=== PATIENT | female | born 1955 | race Caucasian/White ===

== ENCOUNTER 2021-07-29 07:50 | Inpatient (IN) ==
[2021-07-22 19:49] LABS: Basophils # (Auto) 0.05 K/mcL (0.00-0.30); Basophils % (Auto) 0.6 % (0.0-2.0); Eosinophils # (Auto) 0.29 K/mcL (0.00-0.70); Eosinophils % (Auto) 3.5 % (0.0-7.0); Hematocrit 42.1 % (34.1-44.9); Hemoglobin 13.7 g/dL (11.2-15.7); Lymphocytes # (Auto) 3.63 K/mcL (1.50-4.80); Lymphocytes % (Auto) 43.8 % (15.5-49.0); Mean Corpuscular HGB Conc 32.5 g/dL (31.0-36.0); Monocytes # (Auto) 0.45 K/mcL (0.10-0.90); Monocytes % (Auto) 5.4 % (1.0-12.0); Neutrophils % (Auto) 46.7 % (38.0-78.0); Platelet Count 280 K/mcL (140-440); RBC 4.73 M/mcL (3.59-5.38); Red Cell Distribution Width 13.9 % (11.5-14.5); WBC 8.3 K/mcL (4.5-11.0)
[2021-07-22 20:09] LABS: Estimated Average Glucose(eAG) 126 mg/dL
[2021-07-22 20:31] LABS: Blood Urea Nitrogen 14 mg/dL (8-23); Calcium 9.7 mg/dL (8.6-10.4); Carbon Dioxide 27 mmol/L (22-30); Chloride 102 mmol/L (96-108); Glomerular Filtration Rate 42; Glucose 131 mg/dL (70-105)
--- NOTE | 2021-07-26 06:14 | EKG ---
[facility] Test Date: 2021-07-22 Pat Name: Dasia Savage Department: REGINE Room: Gender: Female Strapper: : 1955 Requested By: Connor De La Cruz Order Number: [id number] Reading MD: Christopher Alvarado Measurements Intervals [place] Rate: 61 P: 1 NC: 164 QRS: 40 QRSD: 108 T: 7 QT: 432 QTc: 435 Interpretive Statements Sinus rhythm Nonspecific T abnormalities, anterior leads Electronically Signed On 07-26-2021 6:14:09 PDT by Christopher Alvarado /[id number]
[~2021-07-29 07:50] MED LIST: ceFAZolin 2 GM in DEXTROSE 5% IN WATER 50 ML IV SCH
[2021-07-29] MEDS ORDERED: IOPAMIDOL 100 ML BOTTLE IV ONE (07:51)
[2021-07-29] MEDS ORDERED: fentaNYL 100 MCG/2 ML VIAL IV ONE ×2 (09:07→12:56)
[2021-07-29] MEDS ORDERED: LIDOCAINE HCL/PF 100 MG/5 ML SYRINGE IV ONE (09:07)
[2021-07-29] MEDS ORDERED: SUGAMMADEX SODIUM 200 MG/2 ML VIAL IV ONE (09:07)
[2021-07-29] MEDS ORDERED: PROPOFOL 200 MG/20 ML VIAL IV ONE (09:07)
[2021-07-29] MEDS ORDERED: KETAMINE 50 MG/ML Syringe (ANEST) IV ONE (09:07)
[2021-07-29] MEDS ORDERED: ONDANSETRON 4 MG/2 ML VIAL ONE (09:07)
[2021-07-29] MEDS ORDERED: ePHEDrine 50 MG/5 ML SYRINGE (ANEST) IV ONE (09:07)
[2021-07-29] MEDS ORDERED: DEXAMETHASONE 10 MG/ML VIAL ONE (09:07)
[2021-07-29] MEDS ORDERED: MAGNESIUM SULFATE 2 GM/50 ML BAG IV ONE (09:07)
[2021-07-29] MEDS ORDERED: GLYCOPYRROLATE 0.2 MG/ML VIAL IV ONE (09:07)
[2021-07-29] MEDS ORDERED: ROCURONIUM 10 MG/ML ML IV ONE (09:07)
[2021-07-29] MEDS ORDERED: BUPIVACAINE W/EPI 0.5% 50 ML VIAL IJ ONE (09:33)
[2021-07-29] MEDS: 0.9 % SODIUM CHLORIDE 10 ML SYRINGE IV SCH ×2 (10:00→14:30)
[2021-07-29] MEDS ORDERED: ONDANSETRON 4 MG/2 ML VIAL IV PRN ×2 (10:31→10:59)
[2021-07-29] MEDS ORDERED: HYDROmorphone 0.5 MG/0.5 ML SYRINGE IV PRN (10:31)
[2021-07-29] MEDS ORDERED: PROMETHAZINE 25 MG/ML VIAL IV PRN (10:31)
[2021-07-29] MEDS ORDERED: fentaNYL 100 MCG/2 ML VIAL IV PRN (10:31)
[2021-07-29] MEDS ORDERED: LACTATED RINGERS 250 ML IV PRN (10:31)
[2021-07-29] MEDS ORDERED: MEPERIDINE 25 MG/ML VIAL IV PRN (10:31)
[2021-07-29] MEDS ORDERED: NALOXONE HCL 0.4 MG/ML VIAL IV PRN (10:31)
[2021-07-29] MEDS ORDERED: IPRATROPIUM/ALBUTEROL 3 ML AMPUL.NEB NEB PRN (10:31)
[2021-07-29] MEDS ORDERED: ACETAMINOPHEN 1,000 MG/100 ML BAG IV ONE (10:31)
[2021-07-29] MEDS ORDERED: diphenhydrAMINE 50 MG/ML VIAL IV PRN (10:31)
[2021-07-29] MEDS ORDERED: LACTATED RINGERS 1,000 ML IV SCH (10:45)
--- NOTE | 2021-07-29 10:57 | Brief Operative Note ---
Brief Operative Note Date of procedure: 07/29/21 Pre-op diagnosis: Biliary Colic Post-op diagnosis: same Procedure: Laparoscopic Cholecystectomy Grafts/Implants: No Anesthesia: GETA Findings: moderately edematous gallbladder with substantial inflammation at the level of the cystic duct and hepatocystic triangle - polypoid mass identified in the gallbladder fundus but no stones noted. 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
--- NOTE | 2021-07-29 13:03 | General Surgery Progress Note ---
Surgical - Auxillary Note - Subjective Patient Information: Note initiated : 07/29/21 at 12:35 pm Service Date, if different from initiated Date: [] Patient: Dasia Savage 65 y/o F admitted on for Laparoscopic Cholecystectomy . Chief Complaint: [Following elective laparoscopic cholecystectomy and uneventful operative course the patient was delivered to the PACU in stable condition. After approximately 30 minutes in PACU the anesthesia provider was notified that the patient was having difficulty maintaining SP02 level above 90%. At this time I evaluated the patient in the PACU and found the patient unresponsive with little to no respiratory effort. The patient was supported with supplemental 02 via BVM with SP02 99% while the hopspitalist and attending surgeon were notified. The patient was re-intubated in PACU via glidescope without difficulty and the patient was supported with bag ventilation in preparation for CT to rule out stroke. While waiting for notification that radiology was ready to receive the patient a twitch monitor was used to test the patients motor response. Despite having been given a full intraoperative reversal it was noted that the patient had a less than full response to nerve stimulation. It was decided to give a second dose of Sugammadex 200mg to ensure adequate reversal of muscle relaxation. The patient then began to respond by reaching for the ETT and spontaneously ventilating. Once an adequate respiratory effort was established the patient was then re-extubated in the PACU. The patient was responding appropriately, following commands and maintaining stable vital signs in PACU. She was then accompanied to CT by PACU and anesthesia staff prior to being discharged from PACU in the ICU where she will continue to be monitored.]
--- NOTE | 2021-07-29 13:23 | Cat Scan Report ---
History: Unresponsive TECHNIQUE: The brain was first imaged without contrast in axial plane. Intravenous nonionic contrast was administered. Arterial phase images were acquired from the aortic arch to the top of the head. Sagittal, coronal and curved linear reformatted images of the neck were obtained. FINDINGS: There are symmetric prominent CSF filled perivascular lacunar spaces along the inferior border of the globus pallidus bilaterally. There is no evidence of an infarct, hemorrhage or cerebral edema. The postcontrast view show no enhancing lesion within the brain. There is mild generalized atrophy, most apparent in the frontal and temporal lobes. No abnormal extra-axial fluid collection is present. Angiogram: The aortic arch is normal in caliber. There is minimal plaque formation along the wall of the aorta. The great vessels arising from the aorta are normal in caliber and symmetric. There is a small amount of eccentric calcified plaque along the posterior wall of the left carotid bifurcation and a trace amount of plaque along the posterior wall of the right carotid bifurcation. These are not causing stenosis. There is no dissection or thrombosis. The internal/external carotids are otherwise normal. The vertebral arteries are normal and nearly symmetric. At the foramen magnum the left vertebral is dominant. There are multiple eccentric calcified plaques in the cavernous portions of both internal carotids. These are not causing hemodynamically significant stenosis. The intracranial arteries are otherwise normal. There is no aneurysm, thrombosis or dissection. No vascular malformation is present. There is no enhancing lesion within the brain. IMPRESSION: Mild atherosclerotic disease in the carotid bifurcations bilaterally. These are not causing stenosis and there is no dissection. Normal intracranial arterial circulation Prominent CSF filled perivascular lacunar spaces in the basal ganglia bilaterally. Mild atrophy Interpreted and Authenticated by: oWod Joy 07/29/21
--- NOTE | 2021-07-29 13:30 | Internal Medicine Consult Note ---
HPI Data of Consult Consult date: 07/29/21 Requesting physician: Ron Xiong Primary Care Provider: Angelika Woods Consult Narrative Chief complaint: LOS Reason for consult: Temporarily re-intubated post-op History of present illness: 65-year-old female with a past medical history significant for biliary dyskinesia who now presents to the hospital for an elective laparoscopic cholecystectomy per general surgery. Unfortunately, in the postop period, she had to be reintubated for apnea and acute metabolic encephalopathy. The patient per discussion with anesthesia, most likely still paralyzed and was reversed immediately. With the reversal agent for rocuronium, she was able to wake back up and was responsive quite quickly and extubated once again. She was transferred to the ICU for close monitoring and evaluation. The hospital service was asked to consult. cc:: CC: Randell Xiong MD Review of Systems All systems: reviewed and no additional remarkable complaints except as stated Constitutional Constitutional: Present as per HPI EENT Eyes: Present as per HPI; Absent blurry vision Cardiovascular Cardiovascular: Present as per HPI; Absent chest pain, dyspnea, dyspnea on exertion, leg edema or palpatations Respiratory Respiratory: Present as per HPI; Absent cough, dyspnea, dyspnea on exertion, wheezing or stridor Gastrointestinal Gastrointestinal: Present as per HPI, abdominal pain and nausea; Absent diarrhea, dysphagia, hematemesis, melena or vomiting Musculoskeletal Musculoskeletal: Present as per HPI; Absent joint swelling, limited range of motion, muscle cramps, muscle weakness or myalgias Integumentary Integumentary: Present as per HPI; Absent erythema, new lesions, rash or wounds Neurological Neurological: Present as per HPI; Absent abnormal gait, behavioral changes, focal weakness, headache(s), loss of vision, numbness, sensory deficit or syncope Endocrine Endocrine: Absent change in body appearance, fatigue or heat intolerance Hematologic/Lymphatic Hematologic/Lymphatic: Present as per HPI PFSH PFSH All Active Problems (Updated 06/16/21 @ 21:15 by Randell Xiong MD) Acute pain of left shoulder (Chronic) Epigastric abdominal pain (Chronic) Biliary dyskinesia (Chronic) Vomiting (Chronic) Abdominal pain (Chronic) Hypothyroidism (Chronic) Gout (Chronic) Bilateral hearing loss (Chronic) Subsequent non-ST elevation (NSTEMI) myocardial infarction (Chronic) Edema (Chronic) Coronary arteriosclerosis (Chronic) Essential hypertension (Chronic) Obesity (Chronic) Mixed hyperlipidemia (Chronic) Cholecystitis (Chronic) Finger laceration (Chronic) Medical History Abdominal pain Acute pain of left shoulder Bilateral hearing loss Biliary dyskinesia Cholecystitis Coronary arteriosclerosis Edema Epigastric abdominal pain Essential hypertension Gout Hypothyroidism Mixed hyperlipidemia Obesity Subsequent non-ST elevation (NSTEMI) myocardial infarction Vomiting Surgical History History of coronary artery bypass graft x 3 (~01/2010) History of hysterectomy History of kidney surgery Tumor removed, malignant Family History Other No pertinent family history Social History marital status: occupational status: retired smoking status: Never smoker alcohol intake frequency: does not drink substance use type: does not use MEDS/ALLERGIES Home Medications and Allergies Home Medications Medication Instructions Recorded Confirmed Type aspirin 81 mg tablet,delayed 81 mg PO QDAY 09/03/20 07/29/21 History release diphenhydramine HCl 25 mg capsule 50 mg PO BID cap 09/03/20 07/29/21 History (Allergy (diphenhydramine)) levothyroxine 50 mcg tablet 50 mcg PO QDAY tab 09/03/20 07/29/21 History famotidine 20 mg tablet 20 mg PO BID 06/12/21 07/29/21 History furosemide 20 mg tablet 20 mg PO QDAY tab 06/12/21 07/29/21 History magnesium oxide-magnesium amino 1 cap PO QDAY cap 06/12/21 07/29/21 History acid chelate 300 mg capsule (Magnesium (oxide/AA chelate)) metoprolol tartrate 50 mg tablet 50 mg PO BID tab 06/12/21 07/29/21 History pantoprazole 40 mg tablet,delayed 40 mg PO QDAY 06/12/21 07/29/21 History release rosuvastatin 40 mg tablet 40 mg PO QDAY tab 06/12/21 07/29/21 History tumeric 100 mg-khai 150 mg-olive 1 cap PO QDAY 06/12/21 07/29/21 History 50 mg-oreg 150 mg-caprylate capsule hyoscyamine sulfate 0.125 mg 0.125 mg SUBLINGUAL Q4H 06/14/21 07/29/21 History sublingual tablet s-adenosylmethionine [Osman-E] 1 tab PO QDAY 06/14/21 07/29/21 History acetaminophen 500 mg tablet 500 mg PO Q8H #12 tab 07/29/21 Rx (Tylenol Extra Strength) docusate sodium 100 mg capsule 100 mg PO QDAY #10 cap 07/29/21 Rx (Dulcolax Stool Softener (docusate)) ondansetron 4 mg disintegrating 4 mg PO Q8H PRN #10 tab 07/29/21 Rx tablet oxycodone 5 mg tablet 5 mg PO Q4H PRN #14 tab 07/29/21 Rx Allergies Allergy/AdvReac Type Severity Reaction Status Date / Time Zolpidem [From Ambien] Allergy Unknown Abdominal Verified 07/29/21 07:58 Pain-Sleep walk EXAM Constitutional Vitals: Temp Pulse Resp BP Pulse Ox 97 F 75 11 L 109/64 100 07/29/21 12:40 07/29/21 12:40 07/29/21 12:40 07/29/21 12:40 07/29/21 12:40 General appearance: average body habitus Head Head exam: Present atraumatic, normal inspection and normocephalic Eye Eye exam: Present EOMI, normal appearance and PERRL; Absent conjunctival injection ENT ENT exam: Present normal exam; Absent mucous membranes dry Neck Neck exam: Present full ROM; Absent lymphadenopathy Respiratory Respiratory exam: Present normal respiratory exam and CTAB; Absent decreased breath sounds, respiratory distress or wheezes Cardiovascular Cardiovascular exam: Present normal rate and rhythm and RRR; Absent JVD GI/Abdominal GI/Abdominal exam: Present normal bowel sounds, soft, distended, guarding and tenderness; Absent diminished bowel sounds, mass or rebound Neurological Exam Neurological exam: Present alert, CN II-XII intact and oriented X3 Psychiatric Psychiatric exam: Present normal affect and normal mood Skin Skin exam: Present intact and warm; Absent erythema, pallor, petechiae or rash A/P Assessment and plan (1) Biliary dyskinesia: Assessment and plan: The patient had two episodes of biliary colic this year. She underwent HIDA recently Plan: Sucessful lap isela. Post-op mx per genSx Status: Chronic Comment: Abnormal HIDA Scan Possible Biliary Colic Issues are discussed and reviewed at length including Risks, Benefits, Potential Complications and Alternative Treatment Options regarding Lap Cholecystectomy were all reviewed at length and we specifically discussed the possibility that the gallbladder is NOT the source of these symptoms and discussed other potential etiologies. She very much wishes to have her Gallbladder removed and that seems reasonable given the abnormal HIDA and the nature of her complaints We will proceed with this for her in the coming weeks and the importance of a preoperative Cardiac Clearance prior to surgery was discussed at length as well. My contact info is provided and we will plan on scheduling this for her in the coming weeks (2) Coronary arteriosclerosis: Assessment and plan: The patient had [facility] 10 years ago per . Pre-op cardiac risk assessment: medically optimized for surgery with neg MPI SPECT Plan: Holding home ASA, continue statin and BB Status: Chronic (3) Cholecystitis: Assessment and plan: Mx as above Status: Chronic (4) Hypothyroidism: Assessment and plan: Stable Plan: Continue home synthroid Status: Chronic Time Spent With Patient Time: Total time spent is greater than 50% in coordination of care (as documented) at patient's floor/unit and/or counseling patient: Total time spent with greater than 50% in coordination of care (as documented) at patient's floor/unit and/or counseling patient:: 50 - 70 minutes Total Critical Care Time: 30
[2021-07-29] MEDS ORDERED: SENNOSIDES 1 TABLET PO PRN (13:35)
[2021-07-29] MEDS ORDERED: ACETAMINOPHEN 325 MG TABLET PO PRN (13:35)
[2021-07-29] MEDS: oxyCODONE HCL 5 MG TABLET PO PRN ×3 (14:29→23:08)
[2021-07-29] MEDS: morphine 4 MG/ML VIAL IV PRN ×2 (20:02→23:08)
[2021-07-29] MEDS: METOPROLOL TARTRATE 50 MG TABLET PO SCH (20:02)
[2021-07-30] MEDS: oxyCODONE HCL 5 MG TABLET PO PRN ×3 (03:56→12:32)
[2021-07-30] MEDS: morphine 4 MG/ML VIAL IV PRN (03:57)
[2021-07-30 06:27] LABS: Hematocrit 36.1 % (34.1-44.9); Hemoglobin 11.6 g/dL (11.2-15.7); Mean Corpuscular HGB Conc 32.1 g/dL (31.0-36.0); Mean Platelet Volume 9.6 fL (7.4-10.4); Platelet Count 247 K/mcL (140-440); WBC 11.7 K/mcL (4.5-11.0)
[2021-07-30 06:36] LABS: ALT/SGPT 68 U/L (<40); AST/SGOT 64 U/L (<32); Albumin 3.8 gm/dL (3.2-5.2); Albumin/Globulin Ratio 1.5 (1.0-2.3); Alkaline Phosphatase 75 U/L (39-117); Bilirubin,Total 0.7 mg/dL (0.1-1.0); Blood Urea Nitrogen 13 mg/dL (8-23); Calcium 9.2 mg/dL (8.6-10.4); Carbon Dioxide 24 mmol/L (22-30); Chloride 100 mmol/L (96-108); Globulin 2.6 gm/dL (2.2-3.7); Glomerular Filtration Rate 46; Glucose 131 mg/dL (70-105)
[2021-07-30 08:07] LABS: Lymphocytes % 12 % (15-49); Monocytes % (Manual) 3 % (1-12); Platelet Estimate NORMAL (Normal); RBC Morphology NORMAL (Normal); Reactive Lymphocytes 1 % (0-2); Segmented Neutrophils % 84 % (38-78)
[2021-07-30] MEDS ORDERED: SIMVASTATIN 40 MG TABLET PO SCH (09:00)
[2021-07-30] MEDS ORDERED: LEVOTHYROXINE 50 MCG TABLET PO SCH (09:00)
[2021-07-30] MEDS: 0.9 % SODIUM CHLORIDE 10 ML SYRINGE IV SCH (09:00)
[2021-07-30] MEDS ORDERED: ENOXAPARIN 40 MG/0.4 ML SYRINGE SQ SCH (09:00)
[2021-07-30] MEDS: METOPROLOL TARTRATE 50 MG TABLET PO SCH (09:01)
--- NOTE | 2021-07-30 10:13 | Discharge Summary ---
Discharge Provider Provider Patient information: Note initiated : 07/30/21 at 10:13 am Service Date, if different from initiated Date: [] Patient: Dasia Savage 65 y/o F admitted on 07/29/21 for Laparoscopic Cholecystectomy . Chief Complaint: [] Date of admission: 07/29/21 12:45 Discharge date: 07/30/21 Primary care physician: Angelika Woods Consults: 07/29/21 12:49 Consult to Physician [CONS] Routine Comment: Consulting Provider: Micaela Degroot Reason For Exam: Physician to Consult Discharging clinician: Micaela Degroot Discharge Meds Discharge Medications Home Medications aspirin 81 mg tablet,delayed release 81 mg PO QDAY 09/03/20 [History Confirmed 07/29/21 Last Taken 07/22/21] diphenhydramine HCl 25 mg capsule (Allergy (diphenhydramine)) 50 mg PO BID cap 09/03/20 [History Confirmed 07/29/21 Last Taken 07/29/21 06:50] levothyroxine 50 mcg tablet 50 mcg PO QDAY tab 09/03/20 [History Confirmed 07/29/21 Last Taken 07/29/21 06:50] famotidine 20 mg tablet 20 mg PO BID 06/12/21 [History Confirmed 07/29/21 Last Taken 07/29/21 06:50] furosemide 20 mg tablet 20 mg PO QDAY tab 06/12/21 [History Confirmed 07/29/21 Last Taken Unknown] magnesium oxide-magnesium amino acid chelate 300 mg capsule (Magnesium (oxide/AA chelate)) 1 cap PO QDAY cap 06/12/21 [History Confirmed 07/29/21 Last Taken Unknown] metoprolol tartrate 50 mg tablet 50 mg PO BID tab 06/12/21 [History Confirmed 07/29/21 Last Taken 07/29/21 06:50] pantoprazole 40 mg tablet,delayed release 40 mg PO QDAY 06/12/21 [History Confirmed 07/29/21 Last Taken 07/29/21 06:50] rosuvastatin 40 mg tablet 40 mg PO QDAY tab 06/12/21 [History Confirmed 07/29/21 Last Taken Unknown] tumeric 100 mg-khai 150 mg-olive 50 mg-oreg 150 mg-caprylate capsule 1 cap PO QDAY 06/12/21 [History Confirmed 07/29/21 Last Taken Unknown] hyoscyamine sulfate 0.125 mg sublingual tablet 0.125 mg SUBLINGUAL Q4H 06/14/21 [History Confirmed 07/29/21 Last Taken Unknown] s-adenosylmethionine [Osman-E] 1 tab PO QDAY 06/14/21 [History Confirmed 07/29/21 Last Taken Unknown] acetaminophen 500 mg tablet (Tylenol Extra Strength) 500 mg PO Q8H #12 tab 07/29/21 [Rx Last Taken Unknown] docusate sodium 100 mg capsule (Dulcolax Stool Softener (docusate)) 100 mg PO QDAY #10 cap 07/29/21 [Rx Last Taken Unknown] ondansetron 4 mg disintegrating tablet 4 mg PO Q8H PRN #10 tab 07/29/21 [Rx Last Taken Unknown] oxycodone 5 mg tablet 5 mg PO Q4H PRN #14 tab 07/29/21 [Rx Last Taken Unknown] COURSE Hospital Course Hospital course: 65-year-old female with a past medical history significant for biliary dyskinesia who now presents to the hospital for an elective laparoscopic cholecystectomy per general surgery. Unfortunately, in the postop period, she had to be reintubated for apnea and acute metabolic encephalopathy. The patient per discussion with anesthesia, most likely still paralyzed and was reversed immediately. With the reversal agent for rocuronium, she was able to wake back up and was responsive quite quickly and extubated once again. She was transferred to the ICU for close monitoring and evaluation. The hospital service was asked to consult. 07/30: The patient did well overnight. She is eager to return home today. Discussed the case with general surgery attending operations inspector, who is agreeable with the plan. The patient will be discharged home, advance diet as tolerated. Narcotic analgesics were prescribed per general surgery. She will follow-up in outpatient setting in clinic for her postoperative visit. Discharge diagnosis: Laparoscopic cholecystectomy Time Spent with Patient Time attestation: Total time spent providing and/or coordinating discharge services: Time spent: Greater than 30 minutes EXAM Constitutional Vitals: Temp Pulse Resp BP Pulse Ox 97.9 F 53 L 18 112/63 91 07/30/21 08:01 07/30/21 10:03 07/30/21 08:00 07/30/21 10:02 07/30/21 10:03 General appearance: average body habitus Head Head exam: Present atraumatic, normal inspection and normocephalic Eye Eye exam: Present EOMI, normal appearance and PERRL; Absent conjunctival injection ENT ENT exam: Present normal exam; Absent mucous membranes dry Neck Neck exam: Present full ROM; Absent lymphadenopathy Respiratory Respiratory exam: Present normal respiratory exam and CTAB; Absent decreased breath sounds, respiratory distress or wheezes Cardiovascular Cardiovascular exam: Present normal rate and rhythm and RRR; Absent JVD GI/Abdominal GI/Abdominal exam: Present normal bowel sounds and soft; Absent diminished bowel sounds, distended, guarding, mass, rebound or tenderness Neurological Exam Neurological exam: Present alert, CN II-XII intact and oriented X3 Psychiatric Psychiatric exam: Present normal affect and normal mood Skin Skin exam: Present intact and warm; Absent erythema, pallor, petechiae or rash Discharge Data Data Completed and Pending Labs on day of discharge: Labs from last 24 hours 07/30/21 07/30/21 05:00 05:00 WBC 11.7 H RBC 4.10 Hgb 11.6 Hct 36.1 MCV 88.0 MCH 28.3 MCHC 32.1 RDW 14.0 Plt Count 247 MPV 9.6 Seg Neutrophils % 84 H Lymphocytes % 12 L Monocytes % (Manual) 3 Reactive Lymphocytes 1 Platelet Estimate Normal RBC Morphology Normal Sodium 134 Potassium 4.2 Chloride 100 Carbon Dioxide 24 Anion Gap 10.0 BUN 13 Creatinine 1.2 H GFR Calculation 46 Glucose 131 H Calcium 9.2 Total Bilirubin 0.7 AST 64 H ALT 68 H Alkaline Phosphatase 75 Total Protein 6.4 Albumin 3.8 Globulin 2.6 Albumin/Globulin Ratio 1.5 Discharge Plan Patient/Caregiver Discharge Instructions Activity: increase activity as tolerated Diet: Regular Diet Instructions: Low Fat Diet (DC), Surgical Site Infections (DC), Laparoscopic Cholecystectomy (DC) Activity Restrictions/Additional Instructions: See attached instruction sheet Keep dressings clean and dry Ice packs to incisions RTC as tolerated next 3-4 days No lifting over 10-20 lbs until seen in clinic May remove outer dressings after 5 days but leave inner dressings in place Call Dr Xiong if any questions or concerns at [phone] Prescriptions: New oxycodone 5 mg tablet 5 mg PO Q4H PRN (Reason: pain) Qty: 14 0RF acetaminophen [Tylenol Extra Strength] 500 mg tablet 500 mg PO Q8H Qty: 12 0RF docusate sodium [Dulcolax Stool Softener (dss)] 100 mg capsule 100 mg PO QDAY Qty: 10 0RF ondansetron 4 mg tablet,disintegrating 4 mg PO Q8H PRN (Reason: nausea and vomiting) Qty: 10 0RF No Action famotidine 20 mg tablet 20 mg PO BID 0RF Magnesium (oxide/AA chelate) 300 mg capsule 1 cap PO QDAY 0RF pantoprazole 40 mg tablet,delayed release (DR/EC) 40 mg PO QDAY 0RF ejgyrtv-tlda-efcwr-oreg-capryl 100 mg-150 mg- 50 mg-150 mg capsule 1 cap PO QDAY 0RF hyoscyamine sulfate 0.125 mg tablet, sublingual 0.125 mg sublingual Q4H 0RF s-adenosylmethionine [Osman-E] 1 tab PO QDAY 0RF levothyroxine 50 mcg tablet 50 mcg PO QDAY 0RF aspirin 81 mg tablet,delayed release (DR/EC) 81 mg PO QDAY 0RF diphenhydramine HCl [Allergy (diphenhydramine)] 25 mg capsule 50 mg PO BID 0RF furosemide 20 mg tablet 20 mg PO QDAY 0RF metoprolol tartrate 50 mg tablet 50 mg PO BID 0RF rosuvastatin 40 mg tablet 40 mg PO QDAY 0RF Follow Up Plan Follow up with: Randell Xiong MD [Physician] - 08/13/21 1:00 pm Patient Disposition: Home, Self-Care Discharge Orders: Discharge Order (Routine); Ordered 07/30/21 Ordered By: Micaela Degroot
--- NOTE | 2021-07-30 10:58 | EKG ---
[facility] Test Date: 2021-07-29 Pat Name: Dasia Savage Department: ICU Room: 120A Gender: Female Toe Sewer: : 1955 Requested By: Micaela Degroot Order Number: [id number] Reading MD: Christopher Alvarado Measurements Intervals [place] Rate: 78 P: 49 ME: 197 QRS: 27 QRSD: 108 T: 18 QT: 432 QTc: 493 Interpretive Statements Sinus rhythm Nonspecific T abnormalities, anterior leads Possible reciprocal changes with inferior ST elevation; Nonspecific Lateral ST changes Inferior Q waves Inferior ST elevation Electronically Signed On 07-30-2021 10:58:27 PDT by Christopher Alvarado /[id number]
--- NOTE | 2021-07-30 16:31 | Operative Note ---
DATE OF OPERATION: 07/29/2021 PREOPERATIVE DIAGNOSIS: Biliary colic. POSTOPERATIVE DIAGNOSIS: Biliary colic. OPERATIVE PROCEDURE: Laparoscopic cholecystectomy. SURGEON: Randell Xiong M.D. ANESTHESIA: General. PREOPERATIVE MEDICATIONS: Ancef 2 grams IV. INDICATIONS FOR PROCEDURE: The patient is a 65-year-old female who presented to the clinic some time ago with intermittent bouts of right upper quadrant pain and discomfort consistent with possible biliary colic. She had undergone cross-sectional imaging and ultrasound and then also a HIDA scan. The HIDA scan had suggested potential biliary dyskinesia or gallbladder dysmotility. We agreed to proceed with gallbladder removal for her. Risks, benefits, potential complications, and alternative treatment options were all discussed at length. These included, but are not limited to bleeding, infection, cosmetic dissatisfaction, abnormal scarring, potential need for conversion to open procedure, subtotal removal, drain placement, and other potential concerns and issues that might arise. She gave full informed consent and wished to proceed. PROCEDURE IN DETAIL: The patient was taken to the OR, placed supine on the OR table, and placed under general anesthesia and intubated. Bilateral SCDs were applied. All pressure sensitive areas were carefully padded. Both arms were placed out on arm boards under the direction of the OR team after she was positioned carefully on the table. The abdomen was then widely prepped and draped in a sterile fashion. Procedure began with access of the peritoneal cavity utilizing a 0-degree, 5 mm scope through a Visiport in the right upper abdomen. Once we had obtained peritoneal access, pneumoperitoneum was obtained with high-flow CO2 insufflation, and then we utilized a 0-degree scope to check the area of access to make sure there was no evidence of injury; none was seen. We then changed out our 0-degree scope for a 30-degree scope and placed our remaining trocars. This included a 5 mm supraumbilical trocar, an additional 5 mm right upper abdominal trocar, and a 12 mm subxiphoid mid epigastric trocar. We then identified the gallbladder and grasped the fundus and retracted this towards the right shoulder. Of note, there appeared to be a small mass in the gallbladder fundus itself, well away from the liver and not involving the liver bed at all. The fundus was grasped just below this and retracted towards the right shoulder. She had a stiff liver with some evidence of fatty infiltration that made mobility somewhat difficult, but ultimately we were able to identify the gallbladder tapering down into the area of the hepatocystic triangle. The gallbladder was very tubular. The infundibulum was not externally evident. We chose an area on the right lateral aspect of the gallbladder itself, away from the portal structures, which could easily be seen and then opened up the serosa over the gallbladder here and then began our dissection, and then gradually working laterally here and then bringing the dissection across anteriorly. We were able to identify the neck of the gallbladder tapering down into a fairly short cystic duct and then performed a very extensive hepatocystic triangle dissection, delineating the cystic duct coursing from the gallbladder down into the bile duct itself. We then performed a very extensive cystic plate dissection and obtained a very broad critical view of safety. Cystic artery was taken down along its branches high up on the gallbladder and dissected down and away. We created a very large window here to assure there were no interposed structures; none were seen. Once we had obtained this very clear critical view of safety, the gallbladder was transected at the junction point of the neck and a relatively short cystic duct, utilizing the 35 mm endovascular JAI stapler. The gallbladder was then grasped at its neck and retracted towards the right shoulder as well and then the remainder was dissected out very quickly as most of this dissection was already done. The gallbladder was removed in its entirety, placed in an EndoCatch, and taken out through the subxiphoid 12 mm trocar site without difficulty. 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 Photodocumentation was obtained and no additional management of this was performed at this time. The gallbladder was sent to Pathology. We then removed the 12 mm subxiphoid trocar site after gently irrigating the area out, making sure there was no active bleeding, hemorrhage or biliary leak, and none were seen. We then closed the fascial opening with interrupted 0 Vicryl suture, utilizing the inlet fascial closure device. We then removed our remaining trocars under direct vision to make sure there was no active bleeding or hemorrhage; none was seen. We then closed the skin with interrupted 4-0 Monocryl sutures, respectively. Steri-Strips and sterile dressings were applied. The patient was awakened, extubated, and transferred to PACU in satisfactory condition. No apparent complications or issues. Sponge and instrument counts were correct. Findings were as discussed above. BW:migue Job ID: [id number] Doc ID: [id number] Randell Xiong M.D.
== END 2021-07-30 12:50 | disposition home or self-care (01) | DRG 417 ==
LOC: SUR 07:50 → ICU 12:45
PROVIDERS: ADMIT Surgery Surgical Critical Care; ATTEND Surgery Surgical Critical Care